=== PATIENT | male | born 1950 | race Caucasian/White ===

== ENCOUNTER 2016-07-26 10:21 | Outpatient (CLI) | payer OTHER ==
[2014-11-13 17:29] VITALS: BP 116/74
[2016-07-26 11:14] LABS: eGFR (African) > 60; eGFR (Non-African) > 60
--- NOTE | 2016-07-27 08:38 | Diagnostic Imaging Report ---
[facility] [id number] [facility].[address] [id number] Report Submission Date: Jul 26, 2016 10:54:45 AM BENZENE OPERATOR Patient Study Name: LATASHA MUNSON Date: Jul 26, 2016 10:42:05 AM BENZENE OPERATOR Modality Type: CR Gender: M Description: CHEST : 54 Institution: [facility] Physician LATASHA SOSA - OP Chest -two views CLINICAL HISTORY: Weight loss. Smoking history. FINDINGS: Examination of the chest in [place] and lateral views with comparison to examination of 11/13/2014 demonstrates old healed left rib fractures with left pleural reaction blunting the costophrenic angle. Right lung is clear. Cardiac silhouette is stable and the aorta is atherosclerotic. Pleural reaction is seen posteriorly on the lateral view. IMPRESSION: Posttraumatic changes in the left hemithorax with pleural reaction. Aortic atherosclerosis. Electronically signed on Jul 26, 2016 10:54:45 AM BENZENE OPERATOR by: Ash HALL
--- NOTE | 2016-07-27 08:39 | Diagnostic Imaging Report ---
[facility] [address] [facility].[address] [address] Report Submission Date: Jul 26, 2016 11:14:51 AM PAPER TWISTER TENDER Patient Study Name: LATASHA MUNSON Date: Jul 26, 2016 10:50:10 AM PAPER TWISTER TENDER Modality Type: US Gender: M Description: US ABD LIMITED : 54 Institution: [facility] Physician LATASHA SOSA - OP Screening ultrasound of the abdominal aorta CLINICAL HISTORY: Hypertension. Family history of abdominal aortic aneurysm. TECHNIQUE: Real-time sonography of the abdominal aorta is performed in transverse and longitudinal views. FINDINGS: Proximal aorta measures 1.6 cm in greatest dimension. This increases slightly to 1.7 cm in the midportion and measures 1.7 cm in the distal abdominal aorta. Proximal iliac vessels are of normal caliber measuring less than 1 cm in diameter. There is mild irregularity of the vessels consistent with atherosclerotic plaque. IMPRESSION: Atherosclerotic plaque. No aneurysm. Electronically signed on Jul 26, 2016 11:14:51 AM PAPER TWISTER TENDER by: Ash HALL
== END 2016-07-26 10:22 ==
LOC: RAD 10:21
PROVIDERS: ATTEND Family Medicine
DX: I70.0 Atherosclerosis of aorta (principal); Z82.49 Family history of ischemic heart disease and other diseases of the circulatory system; E11.9 Type 2 diabetes mellitus without complications; I10 Essential (primary) hypertension; R63.4 Abnormal weight loss
CPT/HCPCS: 36415; 71020; 76705; 80053; 80061; 83036